=== PATIENT | male | born 1960 | race Two or more races ===

== ENCOUNTER 2017-11-28 11:35 | Outpatient (CLI) | payer OTHER ==
[~2017-11-28 11:35] MED LIST: AVALIDE 150-12.1 TA1
== END 2017-11-28 11:48 | disposition home or self-care (01) ==
LOC: SONOGRAMA 11:35 → MAMO-SONO 14:15
DX: R31.0 Gross hematuria (principal); N20.0 Calculus of kidney; N20.1 Calculus of ureter

== ENCOUNTER 2018-06-26 05:53 | Emergency (ER) | payer OTHER ==
[~2018-06-26] VITALS: Ht 172.7 cm; Wt 104.3 kg
[2018-06-26] MEDS ORDERED: METFORMIN HCL500 MG (06:08)
[2018-06-26] MEDS ORDERED: SIMVASTATIN20 MG (06:09)
[2018-06-26] MEDS ORDERED: METOPROLOL SUCC50 MG (06:09)
[2018-06-26] MEDS ORDERED: TESSALON PERLE100 M1 PO (11:46)
[2018-06-26] MEDS ORDERED: ZITHROMAX500 MG PO (11:46)
== END 2018-06-26 11:57 | disposition home or self-care (01) ==
LOC: ER 05:53
DX: J18.9 Pneumonia, unspecified organism (principal); R50.9 Fever, unspecified

== ENCOUNTER 2020-09-10 12:41 | Emergency (ER) | payer OTHER ==
[~2020-09-10] VITALS: Ht 172.7 cm; Wt 104.3 kg
[~2020-09-10 12:41] MED LIST changes: +METFORMIN HCL500 MG; +METOPROLOL SUCC50 MG; +SIMVASTATIN20 MG; +TESSALON PERLE100 M1 PO; +ZITHROMAX500 MG PO
[2020-09-10] MEDS ORDERED: LEVOTHYROXINE25 MCG (13:05)
[2020-09-10] MEDS ORDERED: AMLODIPINE-OLM1 EACH (13:09)
[2020-09-10] MEDS ORDERED: GLYBURIDE-METF1 EAC1 (13:09)
[2020-09-10] MEDS ORDERED: ADULT LOW DOSE81 M1 (13:09)
[2020-09-10] MEDS ORDERED: LIPO-FLAVONOID1 EACH (13:10)
[2020-09-10] MEDS ORDERED: HYDROCHLOROTHIA25 MG (13:10)
[2020-09-10] MEDS ORDERED: SYNTHROID50 MCG (13:11)
== END 2020-09-10 18:05 | disposition home or self-care (01) ==
LOC: ER 12:41
DX: N20.1 Calculus of ureter (principal); K76.0 Fatty (change of) liver, not elsewhere classified; K57.30 Diverticulosis of large intestine without perforation or abscess without bleeding; R10.31 Right lower quadrant pain; R11.2 Nausea with vomiting, unspecified; Z03.818 Encounter for observation for suspected exposure to other biological agents ruled out